=== PATIENT | female | born 1940 | race Caucasian/White ===

== ENCOUNTER → 2017-12-31 | Day surgery (SDC) | payer MEDICARE ==
[2017-12-27 11:44] LABS: BASOPHILS # (AUTO) 0.1 (0.0-0.1); BASOPHILS % 0.9 % (0.0-1.0); EOSINOPHILS # (AUTO) 0.5 (0.0-0.4); EOSINOPHILS % 6.1 % (0.0-6.0); HEMATOCRIT 39.7 % (34.2-44.1); HEMOGLOBIN 13.1 g/dL (12.0-16.0); LYMPHOCYTES # (AUTO) 2.3 (1.0-3.2); LYMPHOCYTES % 28.3 % (18.0-39.1); MEAN CORPUSCULAR HEMOGLOBIN 34.7 pg (28-32); MONOCYTES # (AUTO) 0.8 (0.2-0.8); MONOCYTES % 9.3 % (4.4-11.3); NEUTROPHILS # (AUTO) 4.4 (2.1-6.9); NEUTROPHILS % 55.2 % (38.7-80.0); PLATELET COUNT 252 x10e3/uL (140-360); RED BLOOD COUNT 3.78 x10e6/uL (3.6-5.1); RED CELL DISTRIBUTION WIDTH 13.2 % (11.7-14.4)
[2017-12-27 11:58] LABS: ANION GAP 14.3 mmol/L (8-16); CALCIUM 11.2 mg/dL (8.4-10.2); CREATININE, SERUM 1.79 mg/dL (0.57-1.11); POTASSIUM 4.3 mmol/L (3.5-5.1)
--- NOTE | 2017-12-27 12:36 | Diagnostic Imaging Report ---
PROCEDURE: Frontal and lateral views of the chest. COMPARISON: None. INDICATIONS: PRE OPERATIVE CHEST X-RAY FOR FINGER SURGERY FINDINGS: Lines/tubes: None. Lungs: The lungs are well inflated and grossly clear. There is no evidence of pneumonia or pulmonary edema. Pleura: There is no pleural effusion or pneumothorax. Heart and mediastinum: Cardiac silhouette is normal. Pulmonary vasculature is normal. Bones: No acute bony abnormality. Degenerative changes in the thoracic spine. IMPRESSION: 1. No acute cardiopulmonary abnormality. Chalino Stephens M.D. Dictated by: Chalino Stephens M.D. on 12/27/2017 at 12:40 Electronically approved by: Chalino Stephens M.D. on 12/27/2017 at 12:40
[~2017-12-31] MED LIST: ALLOPURINOL100 MG PO; BUPIVACAINE HCL 0.5% 10ML MPF VIAL INJ ONE; CEFAZOLIN SOD 1 GM VIAL ONE; CITALOPRAM HBR10 MG PO; FENTANYL CITRATE/PF 100MCG/2 ML INJ ONE; FUROSEMIDE20 MG PO; GLIPERIDE PO; GLYBURIDE5 MG PO; INSULIN REGULAR, HUMAN 100 UNIT/1 ML 3ML VIAL ONE; KETOROLAC TROMETHAMINE 30 MG/ML VIAL ONE; LEVOTHYROXINE25 MCG PO; LIDOCAINE HCL 2% LOCAL INJ 5 ML SDV VIAL INJ ONE; METOPROLOL TART25 MG PO; MIDAZOLAM HCL 2 MG/2 ML VIAL ONE; ONDANSETRON HCL INJ 2 MG/ML VIAL ONE; PRAVASTATIN SOD10 MG PO; PROPOFOL IV EMULSION 10 MG/ML 20 ML VIAL ONE; SEVOFLURANE INHAL SOLN 250 ML PEN BTL ONE; ULTRAM 50MG50 MG PO
--- NOTE | 2017-12-31 13:31 | Operative Report ---
DATE OF PROCEDURE: December 31, 2017 CUTTING AND SPLICING SUPERVISOR: Shantanu Patel PA-C The patient was brought to the operating room for induction of anesthesia. Throughout this case, my PA's assistance was necessary for retraction of soft tissue and positioning of the extremity. This allows for efficient and technically successful execution of the operation and is considered medically necessary. PREOPERATIVE DIAGNOSIS: Right 4th trigger finger. POSTOPERATIVE DIAGNOSIS: Right 4th trigger finger. PROCEDURE: Release right 4th trigger finger. INDICATIONS: The patient is a 77-year-old lady who has clinic signs and symptoms consistent with right 4th trigger finger. She has failed conservative management and would like to proceed with definitive intervention. The risks and benefits of surgical release have been explained. She states she understands and wishes to proceed. DESCRIPTION OF PROCEDURE: The patient was brought to the operating room. She was placed under general anesthetic. Her right upper extremity was prepped and draped in a sterile manner. A preoperative time out was performed. The extremity was exsanguinated and a proximal tourniquet was inflated to 250 mmHg. A transverse incision in line with the distal palmar crease was made. The A1 benito was exposed and released with a combination of a 15 blade surgical knife and tenotomy scissors. Complete release of the tendon was noted. The tendon was retracted from the wound. There was some fraying but otherwise the tendon was intact. The wound was closed with 2 interrupted nylon stitches, 1 mL of 1/4 percent Marcaine without epinephrine was injected around the incision. A sterile bandage was applied. The tourniquet was deflated and she was transported to the recovery room in stable condition. Job#: [id number]
== END | disposition home or self-care (01) ==
LOC: OR 05:16
PROVIDERS: ATTEND Specialist
DX: M65.341 Trigger finger, right ring finger (principal); M19.90 Unspecified osteoarthritis, unspecified site; C56.9 Malignant neoplasm of unspecified ovary; E11.9 Type 2 diabetes mellitus without complications; I25.10 Atherosclerotic heart disease of native coronary artery without angina pectoris; I25.2 Old myocardial infarction; I10 Essential (primary) hypertension; E78.5 Hyperlipidemia, unspecified; E03.9 Hypothyroidism, unspecified; K21.9 Gastro-esophageal reflux disease without esophagitis; I48.91 Unspecified atrial fibrillation; Z01.810 Encounter for preprocedural cardiovascular examination; Z01.812 Encounter for preprocedural laboratory examination; Z01.818 Encounter for other preprocedural examination; Z79.84 Long term (current) use of oral hypoglycemic drugs; Z95.5 Presence of coronary angioplasty implant and graft; Z86.73 Personal history of transient ischemic attack (TIA), and cerebral infarction without residual deficits
CPT/HCPCS: 26055; 36415 ×2; 71046; 80048; 82948; 85025; 93005; J0690; J1885; J2001; J2250; J2405